=== PATIENT | female | born 1965 | race Caucasian/White ===

== ENCOUNTER 2023-11-17 07:53 | Day surgery (SDC) | payer BC ==
[2023-11-15 10:36] VITALS: BP 175/97
[~2023-11-17] VITALS: Ht 167.6 cm; Wt 85.9 kg
[~2023-11-17 07:53] MED LIST: CALCIUM500 MG PO; CEFAZOLIN SODIUM 2 GM/20 ML SYR IV SCH; CYCLOSPORINE100 MG PO; DEXAMETHASONE SOD PHOS 4 MG/ML VIAL ONE; FAMOTIDINE 20 MG/ 2 ML VIAL ONE; HEParin SOD (PORCINE) 5,000 UNIT/0.5 ML SYR SUB-Q SCH; IBLOOD GLUCOSE TEST STRIP 1 EA TEST VI PRN; KETOROLAC TROMETHAMINE 30 MG/ML VIAL ONE; LACTATED RINGER'S 1,000 ML IV ONE; LACTATED RINGER'S 1,000 ML IV SCH; LIDOCAINE HCL 1% 5 ML SDV INJ ONE; MAG-OXIDE200 MG PO; METOCLOPRAMIDE HCL 10 MG/2 ML SDV ONE; MIDAZOLAM HCL 2 MG/2 ML VIAL ONE; MILLIPRED5 MG PO; MYCOPHENOLIC A180 MG PO; PROBIOTIC1 EAC2 PO; TOPROL XL25 MG PO; VIT D3-VIT K21 EACH PO; ZYLOPRIM100 MG PO; fentaNYL citrate 100 MCG/2 ML VIAL ONE; ondansetron HCL 4 MG/2 ML VIAL ONE; propofoL 200 MG/20 ML VIAL ONE
[2023-11-17 08:12] VITALS: BP 136/77
[2023-11-17] MEDS ORDERED: NIFEDIPINE ER30 M1 PO (08:14)
[2023-11-17] MEDS ORDERED: LIDOCAINE HCL 1% 30 ML SDV ONE (08:25)
--- NOTE | 2023-11-17 09:27 | NUR ---
JOSE GUADALUPE 0925: PT IS BACK TO DS FROM IMAGING. SHE IS GIVEN A WARM BLANKET, HOOKED BACK UP TO LR. SHE AND ARE GIVEN AN UPDATE ON TIMELINE.
[2023-11-17] MEDS ORDERED: SUCCINYLCHOLINE IN 0.9% NACL 200 MG/10 ML SYRINGE ONE (11:01)
[2023-11-17] MEDS ORDERED: LIDOCAINE HCL 4% 5 ML AMP ONE (11:01)
[2023-11-17] MEDS ORDERED: propofoL 200 MG/20 ML VIAL ONE (11:02)
[2023-11-17] MEDS ORDERED: HYDROCORTISONE SOD SUCCINATE 100 MG/2 ML VIAL ONE (11:10)
[2023-11-17] MEDS ORDERED: ACETAMINOPHEN 1,000 MG/100 ML VIAL ONE (11:13)
[2023-11-17] MEDS ORDERED: droPERidol 5 MG/2 ML VIAL ONE (11:31)
[2023-11-17] MEDS ORDERED: DIGOXIN 500 MCG/2 ML AMP ONE (11:31)
[2023-11-17] MEDS ORDERED: PROCHLORPERAZINE EDISYLATE 10 MG/2 ML VIAL IV PRN ×2 (11:45→13:00)
[2023-11-17] MEDS ORDERED: IBLOOD GLUCOSE TEST STRIP 1 EA TEST VI PRN (11:45)
[2023-11-17] MEDS ORDERED: fentaNYL citrate 50 MCG/ML SDV IV PRN (11:45)
[2023-11-17] MEDS ORDERED: droPERidol 5 MG/2 ML VIAL IV PRN (11:45)
[2023-11-17] MEDS ORDERED: MORPHINE SULFATE 10 MG/ML VIAL IV PRN (11:45)
[2023-11-17] MEDS ORDERED: ondansetron HCL 4 MG/2 ML VIAL IV PRN ×2 (11:45→13:00)
[2023-11-17] MEDS ORDERED: NALOXONE HCL 0.4 MG SYR IV PRN ×2 (11:45→13:00)
[2023-11-17] MEDS ORDERED: METOCLOPRAMIDE HCL 10 MG/2 ML SDV IV PRN (11:45)
[2023-11-17] MEDS ORDERED: HYDROCODONE/ACETA 5/325 TAB PO PRN (13:00)
[2023-11-17] MEDS ORDERED: HYDROmorphone HCL 1 MG/ML SYR IV PRN (13:00)
--- NOTE | 2023-11-17 13:01 | NUR ---
11/17/23 1301 Shima Davidson PATIENT WAKES SUDDENLY. SHE FOLLOWS DIRECTIONS TO OPEN HER MOUTH AND HER ORAL AIRWAY IS REMOVED. OXYGEN SATURATION REMAINS 100% ON 10L VIA MASK. ICE APPLIED TO RIGHT AXILLA.
[2023-11-17 13:37] VITALS: BP 123/67
--- NOTE | 2023-11-17 13:39 | NUR ---
ICED WATER GIVEN. PATIENT REMAINS CONNECTED TO THE PULSE OXIMETER. HER IS AT HER BEDSIDE.
[2023-11-17 14:33] VITALS: BP 129/69
--- NOTE | 2023-11-17 15:52 | NUR ---
LE 1435: PT HAS TOLERATED PUDDING AND WATER WITHOUT ISSUES. SHE WOULD LIKE TO GET UP TO USE THE RESTROOM. SHE IS ASSISTED OOB WITH STANDBY ASSIST. SHE REPORTS FEELING A LITTLE WOBBLY, SHE IS ENCOURAGED NOT TO STARE AT THE FLOOR AND MAKE POSITION CHANGES SLOWLY. LE 1438: PT IS ABLE TO VOID 350MLS OF URINE. SHE AMBULATES BACK TO HER ROOM INDEPENDENTLY. SHE INDICATES THAT SHE WOULD LIKE TO GO HOME AT THIS TIME. LE 1441: PT IS EDUCATED ON HOW TO BEST DRESS HERSELF AND TO OPEN HER CURTAIN WHEN SHE IS READY. LE 1449: PT AND ARE GIVEN VERBAL AND WRITTEN DC INSTRUCTIONS. THEY BOTH VERBALIZE UNDERSTANDING. QUESTIONS ARE ASKED AND ANSWERED. LE 1450: PT IS TAKEN TO PERSONAL VEHICLE VIA .
--- NOTE | 2023-11-18 07:29 | OR ---
[facility] [address] [place], [place] [address] Signed DATE OF OPERATION: 11/17/2023 SURGEON: Alyx Stockton MD PREOPERATIVE DIAGNOSIS: Right upper outer quadrant breast cancer. POSTOPERATIVE DIAGNOSIS: Right upper outer quadrant breast cancer. PROCEDURES: 1. Injection of methylene blue. 2. Right axillary sentinel lymph node biopsies x2. 3. Right breast lumpectomy with the YUE reflector. ESTIMATED BLOOD LOSS: 20 mL. INDICATIONS: Leticia is a 58-year-old female, asked to see me for her right breast cancer in the upper outer quadrant. Her screening mammogram in August 16, 2023 showed a small area in the right upper outer quadrant of her breast about 15 cm from the nipple. She also had multiple other lesions. She went back for diagnostic mammogram and ultrasound on September 09, 2023. Again, she has a small 6 mm area in the right upper outer quadrant at about the 10 or 11 o'clock radius. Ultrasound confirmed this 8 x 8 x 6 mm lesion. The x-rays showed some of the lymph nodes were probably okay but the other x-rays were little more concerned. She went back for an MRI of both breasts because of multiple bilateral lesions. This was performed on September 22, 2023. Again, she has a small 10 mm lesion about the 11 o'clock radius 15 cm back from the nipple. Again, there was some concern whether or not the lymph nodes might be involved. However, I gave her reassurance that is less likely as the lesion is smaller. She underwent ultrasound-guided biopsy of that lesion on October 06, 2023. It came back ductal carcinoma and was ER/LA positive, but HER2/marilyn negative. She was asked to see me with respect to the above. She came with her and daughter. Part way through the office visit her had return to work. I had reviewed all this in great detail with Leticia. I performed a breast exam with her daughter and our medical dosimetrist, Lisset, in the room. She has large pendulous breasts. Both nipples were everted without drainage. No palpable lesions. No palpable lymph nodes. I gave her our brochure on breast and breast surgery. We looked it very carefully. I explained to her the concept of a sentinel lymph node biopsy. We also reviewed the concept of the YUE reflector so Electronically Signed By: ALYX STOCKTON MD 11/18/23 0729 PATIENT NAME: LETICIA CURTIS OPERATIVE REPORT DATE OF : 65 REPORT #: [id number] PHYSICIAN: ALYX STOCKTON MD PCP: BECKIE COLLINS REPORT IS CONFIDENTIAL AND NOT TO BE RELEASED WITHOUT AUTHORIZATION [facility] [address] [place], [place] [address] Signed we can localize the lesion to remove it with surrounding breast tissue. She understands this normally takes two separate incisions. It is a day surgery. There is risk including, but not limited to bleeding, infection, scarring, change in contour of the skin as well as possible need for additional surgeries as well as additional treatments that would include the medical oncologist and our radiation oncologist. She had expressed understanding and wished to proceed. PROCEDURE IN DETAIL: I met with Leticia and her this morning in the preop area. She had been in our Radiology Department this morning for injection of the technetium sulfur colloid around her nipple areolar complex. It showed two sentinel lymph nodes in the axilla. She had come last week for placement of the YUE reflector and of course that was quite evident on that mammogram. Leticia and I agreed on the right side. We marked that appropriately. After this, she was taken to the operating room and placed in a supine position under general endotracheal tube anesthesia. She was given preoperative antibiotics along with subcutaneous heparin. SCDs were utilized. She was then prepped and draped in the usual sterile fashion. We made a traditional incision along the inferior edge of the axillary hair and we carried that down through the tissues bluntly until we passed in the axilla and found both of her simple lymph nodes with the [place] counter. I had injected methylene blue underneath the nipple areolar complex before the procedure started but we did not see any methylene blue in those lymph nodes. We rechecked the axilla quite extensively and found no other evidence of any lymph nodes. We then injected some local anesthetic. The wound was irrigated and suctioned out until clear. We closed the wound in layers with 3-0 interrupted Monocryl sutures. The skin edges were reapproximated with running 5-0 fast absorbing plain gut suture. We then turned our attention to the breast itself. We used the probe for the YUE reflector. We reviewed the mammogram and it is not particularly far underneath the breast. We could see the puncture site in her skin and a little bit of bruising. We went ahead and made a curvilinear incision to follow the lines of Langerhans. We carefully worked our way down with the help of the detector and went down and around the area of the lesion with the help of the cautery and the curved Barnes scissors. We marked the lesion appropriately with silk sutures with long lateral, short superior and double stitch deep toward the chest wall. We went back and found a few bleeding points that we controlled easily with cautery. The wound was irrigated and suctioned out until clear. We injected local anesthetic. The wound was closed in layers again with interrupted 3-0 Monocryl suture including the dermis. The skin edges were then reapproximated with a running 5-0 fast absorbing plain gut suture. Dry gauze and tape were applied to both incisions. After this, Leticia was awakened from her anesthesia, extubated in the OR, and taken to recovery room in stable condition. Our radiologist did call us back while we were in the room and indeed the YUE reflector and her biopsy clip were in the specimen as along with the lesion itself. Electronically Signed By: ALYX STOCKTON MD 11/18/23 0729 PATIENT NAME: LETICIA CURTIS OPERATIVE REPORT DATE OF : 65 REPORT #: [id number] PHYSICIAN: ALYX STOCKTON MD PCP: BECKIE COLLINS REPORT IS CONFIDENTIAL AND NOT TO BE RELEASED WITHOUT AUTHORIZATION [facility] [address] [place], [place] [address] Signed Alyx Stockton MD ALB/MODL /[id number] cc: MONIK Qureshi MD Copies: BECKIE COLLINS ANDREW L MD ~ Electronically Signed By: ALYX STOCKTON MD 11/18/23 0729 PATIENT NAME: LETICIA CURTIS OPERATIVE REPORT DATE OF : 65 REPORT #: [id number] PHYSICIAN: ALYX STOCKTON MD PCP: BECKIE COLLINS REPORT IS CONFIDENTIAL AND NOT TO BE RELEASED WITHOUT AUTHORIZATION
--- NOTE | 2023-11-23 16:45 | PATH ---
[facility] [address] [place], [place] [address] Signed SPECIMEN(S): A RIGHT SENTINEL LYMPH NODE #1 SPECIMEN(S): B RIGHT SENTINEL LYMPH NODE #2 SPECIMEN(S): C RIGHT BREAST LUMPECTOMY SPECIMEN SOURCE: A. RIGHT SENTINEL LYMPH NODE #1 B. RIGHT SENTINEL LYMPH NODE #2 C. RIGHT BREAST LUMPECTOMY CLINICAL HISTORY: Right breast ductal carcinoma, ER/DE positive; HER2/negative, right lumpectomy, formalin times: Removed-12:15 PM, in formalin: 12:21 PM. FINAL PATHOLOGIC DIAGNOSIS: A. [place] lymph node #1: - 1 lymph node negative for metastatic carcinoma (0/1). B. [place] lymph node #2: - 1 lymph node negative for metastatic carcinoma (0/1). C. Right breast lumpectomy: - Invasive ductal carcinoma. - See synoptic report. INVASIVE CARCINOMA OF THE BREAST: Resection Applies To: A, B, C. SPECIMEN Procedure: Excision (less than total mastectomy) Specimen Laterality: Right TUMOR Tumor Site: Not specified Histologic Type: Invasive carcinoma of no special type (ductal) Glandular (Acinar) / Tubular Differentiation: Score 1 Nuclear Pleomorphism: Score 2 Mitotic Rate: Score 1 Overall Grade: Grade 1 (scores of 3, 4 or 5) Tumor Size: Greatest dimension of largest invasive focus (Millimeters) - 13 x 12 x 9 mm Tumor Focality: Single focus of invasive carcinoma Ductal Carcinoma In Situ (DCIS): Not identified Lobular Carcinoma In Situ (LCIS): Not identified Lymphatic and / or Vascular Invasion: Not identified Dermal Lymphatic and / or Vascular Invasion: No skin present PATIENT NAME: LEONOR CURTIS PATHOLOGY DATE OF : 65 REPORT #: [id number] PHYSICIAN: [facility] PCP: BECKIE COLLINS REPORT IS CONFIDENTIAL AND NOT TO BE RELEASED WITHOUT AUTHORIZATION [facility] [address] [place], [place] [address] Signed Microcalcifications: Present in invasive carcinoma Treatment Effect in the Breast: No known presurgical therapy MARGINS Margin Status for Invasive Carcinoma: Invasive carcinoma present at margin Margin(s) Involved by Invasive Carcinoma: Lateral - focal, limited, less than 1 mm. REGIONAL LYMPH NODES Regional Lymph Node Status: All regional lymph nodes negative for tumor Total Number of Lymph Nodes Examined (sentinel and non-sentinel): 2 Number of [place] Nodes Examined: 2 pTNM CLASSIFICATION (AJCC 8th Edition) Reporting of pT, pN, and (when applicable) pM categories is based on information available to the pathologist at the time the report is issued. As per the AJCC (Chapter 1, 8th Ed.) it is the managing physician's responsibility to establish the final pathologic stage based upon all pertinent information, including but potentially not limited to this pathology report. pT Category: pT1c pN Category: pN0 Breast Biomarker Testing Performed on Previous Biopsy: Estrogen Receptor (ER) Status: Positive (greater than 10% of cells demonstrate nuclear positivity) Percentage of Cells with Nuclear Positivity: 81-90% Progesterone Receptor (PgR) Status: Positive Percentage of Cells with Nuclear Positivity: 5% HER2 (by immunohistochemistry): Negative (Score 0) Testing Performed on Comment(s): As part of the [facility] software quality assurance engineer program the case has been reviewed by a second pathologist (ORIANA Alonso). JDAVID MICROSCOPIC EXAMINATION: Histologic sections of all submitted blocks (or IHC as applicable) are digitally scanned and examined. These findings, together with the gross examination, support the pathologic diagnosis. GROSS DESCRIPTION: A. The specimen, labeled and designated "Patria Curtis " and designated on the requisition "sentinel lymph node #1," is received in formalin and consists of 1.4 x 1.4 x 0.9 cm pink-jean possible lymph node with attached yellow-jean adipose tissue. The lymph node is sectioned and PATIENT NAME: LEONOR CURTIS PATHOLOGY DATE OF : 65 REPORT #: [id number] PHYSICIAN: LOUIS CHOUDHURY PCP: BECKIE COLLINS REPORT IS CONFIDENTIAL AND NOT TO BE RELEASED WITHOUT AUTHORIZATION [facility] [address] [place], [place] [address] Signed entirely submitted in cassette A1. Only adipose tissue remains within the container. B. The specimen, labeled and designated "Patria Curtis " and designated on the requisition "sentinel lymph node #2," is received in formalin and consists of 0.9 x 0.8 x 0.4 cm pink possible lymph node with attached yellow-jean adipose tissue. The lymph node is trisected and entirely submitted in cassette B1. Only adipose tissue remains within the container. C. The specimen, labeled and designated "KirstenPatria irene " and designated on the requisition "right breast lumpectomy," is received in formalin and consists of 27 gram oriented portion of yellow-jean fibroadipose tissue that is 6.2 x 4.7 x 2.9 cm. A short suture is present and identifies the superior margin; a long suture identifies the lateral margin. A medium length suture which is not identified is present on the posterior aspect. The specimen is inked as follows: superior - blue; inferior - green; medial - red; lateral - orange; anterior - yellow; and posterior - black. The specimen is serially sectioned from anterior to posterior into nine slices revealing a 1.3 x 1.2 x 0.9 cm white firm stellate mass present in slices 3-5 containing a metallic clip and blunger detector. The mass is 1.0 cm from the anterior soft tissue margin, 1.6 cm from the posterior soft tissue margin, 0.4 cm from the superior soft tissue margin, 1.3 cm from the inferior soft tissue margin, 1.2 cm from the medial soft tissue margin, and 0.4 cm from the lateral soft tissue margin. Approximately 95% of the remaining specimen is a yellow-jean greasy adipose tissue and 5% is a white-jean rubbery fibrous tissue. Health Practice Manager sections are submitted in 10 cassettes. Cassette Summary: (C1-C3) slice one, anterior soft tissue resection margin, perpendicular (C4) fibroadipose tissue anterior to mass, slice two (C5-C7) mass to superior, inferior, medial, lateral soft tissue resection margins, perpendicular, slices three, four, five, clip in C6 (C8) fibroadipose tissue posterior to mass (C9-C10) slice nine, posterior soft tissue resection margin, perpendicular Cold ischemia time: 6 minutes Approximate Formalin time: 21 hours. FB (under the direct supervision of a pathologist) The Gross Description was prepared using a voice recognition system. The report was reviewed for accuracy; however, sound-alike word errors, addition and/or deletions may occur. If there is any PATIENT NAME: KIRSTEN,LEONOR MORINE PATHOLOGY DATE OF : 65 REPORT #: [id number] PHYSICIAN: LOUIS CHOUDHURY PCP: BECKIE COLLINS REPORT IS CONFIDENTIAL AND NOT TO BE RELEASED WITHOUT AUTHORIZATION [address] [address] Signed question about this report, please contact Client Services. ADDITIONAL NOTES: Immunohistochemical and/or in situ hybridization studies if performed in this case included appropriate positive controls that reacted as expected. This test was developed and its performance characteristics determined by [facility]. It has not been cleared or approved by the U.S. Food and Drug Administration. The FDA has determined that such clearance or approval is not necessary. This test is used for clinical purposes. It should not be regarded as investigational or for research. [facility] is certified under the Clinical Laboratory Improvement Amendments of 1988 (CLIA) as qualified to perform high complexity clinical laboratory testing. PERFORMING LABORATORY: Technical component was performed by [facility], [address] [place] [id number] (CLIA# [id number]). Professional interpretation was performed by [facility] - [place] [facility] - [address] [place] [address] (CLIA#: [id number]). Diagnostician: Glenn Ruiz MD Pathologist Electronically Signed 11/23/2023 Copies: ~ PATIENT NAME: LEONOR CURTIS PATHOLOGY DATE OF : 65 REPORT #: [id number] PHYSICIAN: LOUIS CHOUDHURY PCP: BECKIE COLLINS REPORT IS CONFIDENTIAL AND NOT TO BE RELEASED WITHOUT AUTHORIZATION
== END 2023-11-17 14:50 | disposition home or self-care (01) ==
LOC: DS 07:53 → NUC 09:00 → DS 09:00
PROVIDERS: ATTEND Colon & Rectal Surgery
PROC: 0HBT0ZZ Excision of Right Breast, Open Approach (ICD-10-PCS; principal; 2023-11-17 10:00)
PROC: 07B50ZX Excision of Right Axillary Lymphatic, Open Approach, Diagnostic (ICD-10-PCS; 2023-11-17 10:00)
DX: C50.411 Malignant neoplasm of upper-outer quadrant of right female breast (principal); Z17.0 Estrogen receptor positive status [ER+]; I12.9 Hypertensive chronic kidney disease with stage 1 through stage 4 chronic kidney disease, or unspecified chronic kidney disease; N18.9 Chronic kidney disease, unspecified; R73.03 Prediabetes; E66.9 Obesity, unspecified; Z68.31 Body mass index [BMI] 31.0-31.9, adult; Z79.899 Other long term (current) drug therapy; Z88.8 Allergy status to other drugs, medicaments and biological substances
CPT/HCPCS: 00400; 76098; 78195; A9541; J0131; J0330; J0690; J1100; J1160; J1644; J1720; J1790; J1885; J2250; J2405; J2704; J2765; J3010; J7121; Q9968

== ENCOUNTER 2024-02-02 05:53 | Day surgery (SDC) | payer BC ==
[2024-01-31 16:26] VITALS: BP 149/89
[~2024-02-02] VITALS: Ht 167.6 cm; Wt 82.0 kg
[~2024-02-02 05:53] MED LIST changes: -CEFAZOLIN SODIUM 2 GM/20 ML SYR IV SCH; -DEXAMETHASONE SOD PHOS 4 MG/ML VIAL ONE; -FAMOTIDINE 20 MG/ 2 ML VIAL ONE; -HEParin SOD (PORCINE) 5,000 UNIT/0.5 ML SYR SUB-Q SCH; -IBLOOD GLUCOSE TEST STRIP 1 EA TEST VI PRN; -KETOROLAC TROMETHAMINE 30 MG/ML VIAL ONE; -LACTATED RINGER'S 1,000 ML IV ONE; -LIDOCAINE HCL 1% 5 ML SDV INJ ONE; -METOCLOPRAMIDE HCL 10 MG/2 ML SDV ONE; -MIDAZOLAM HCL 2 MG/2 ML VIAL ONE; +NIFEDIPINE ER30 M1 PO; -fentaNYL citrate 100 MCG/2 ML VIAL ONE; -ondansetron HCL 4 MG/2 ML VIAL ONE; -propofoL 200 MG/20 ML VIAL ONE
[2024-02-02 06:11] VITALS: BP 149/83
[2024-02-02] MEDS ORDERED: LIDOCAINE 1% W/ EPI 1:200,000 30 ML SDV ONE (06:36)
[2024-02-02] MEDS ORDERED: BUPIVACAINE HCL 0.25% 50 ML MDV ONE (06:36)
[2024-02-02] MEDS ORDERED: CEFAZOLIN SODIUM 2 GM/20 ML SYR IV SCH (07:00)
[2024-02-02] MEDS ORDERED: IBLOOD GLUCOSE TEST STRIP 1 EA TEST VI PRN ×2 (07:00→08:30)
[2024-02-02] MEDS ORDERED: LIDOCAINE HCL 1% 5 ML SDV INJ ONE (07:00)
--- NOTE | 2024-02-02 07:25 | NUR ---
VISITED DURING SPIRITUAL CARE ROUNDS. PT AND IN ROOM EXHIBIT STRONG RELATIONAL REOURCES. CARDIOLOGY MANAGER PROVIDED PAD EXTRACTOR TENDER EDUCATION, SUPPORTIVE PRESENCE, HOSPITALITY, PRAYER. PT AND EXPRESSED GRATITUDE.
[2024-02-02] MEDS ORDERED: fentaNYL citrate 100 MCG/2 ML VIAL ONE (07:29)
[2024-02-02] MEDS ORDERED: ACETAMINOPHEN 1,000 MG/100 ML VIAL ONE (07:30)
[2024-02-02] MEDS ORDERED: MAGNESIUM SULFATE 1 GM/2 ML VIAL ONE (07:30)
[2024-02-02] MEDS ORDERED: propofoL 200 MG/20 ML VIAL ONE (07:30)
[2024-02-02] MEDS ORDERED: ondansetron HCL 4 MG/2 ML VIAL ONE (07:30)
[2024-02-02] MEDS ORDERED: HEParin SOD (PORCINE) 5,000 UNIT/0.5 ML SYR SUB-Q ONE (07:30)
[2024-02-02] MEDS ORDERED: DEXAMETHASONE SOD PHOS 4 MG/ML VIAL ONE (07:30)
[2024-02-02] MEDS ORDERED: LIDOCAINE HCL 2% 5 ML SDV ONE (07:30)
[2024-02-02] MEDS ORDERED: dexmedeTOMIDine HCl 200 MCG/2 ML VIAL ONE (07:30)
[2024-02-02] MEDS ORDERED: methylPREDNISolone SOD SUCC 125 MG/2 ML VIAL ONE (07:33)
[2024-02-02] MEDS ORDERED: KETAMINE in NS 50 MG/5 ML SYR ONE (07:35)
[2024-02-02] MEDS ORDERED: ePHEDrine sulfate 50 MG/ML AMP ONE (08:24)
[2024-02-02] MEDS ORDERED: fentaNYL citrate 50 MCG/ML SDV IV PRN (08:30)
[2024-02-02] MEDS ORDERED: ondansetron HCL 4 MG/2 ML VIAL IV PRN ×2 (08:30→09:15)
[2024-02-02] MEDS ORDERED: NALOXONE HCL 0.4 MG SYR IV PRN ×2 (08:30→09:15)
[2024-02-02] MEDS ORDERED: droPERidol 5 MG/2 ML VIAL IV PRN (08:30)
--- NOTE | 2024-02-02 09:06 | NUR ---
02/02/24 0906 Sandi Galvan 0851-PATIENT ARRIVED TO PACU ON RA RR EVEN 92%. PATIENT REACTIVE TO VERBAL STIMULI OPENS EYES ORIENTED TO PACU DENIES PAIN OR NAUSEA. DRESSING TO RIGHT BREAST CDI ICE APPLIED. IVF INFUSING. SR. 0905-PATIENT RESTING WITH EYES CLOSED. O2 SAT DECREASED TO 90% AROUSES EASILY TO VERBAL STIMULI AND TAKES DEEP BREATHES. O2 SAT INCREASED TO 94%. PATIENT REPORTS "I SEE TWO OF YOU" ENCOURAGED TO REST CLOSES EYES.
[2024-02-02] MEDS ORDERED: PROCHLORPERAZINE EDISYLATE 10 MG/2 ML VIAL IV PRN (09:15)
[2024-02-02] MEDS ORDERED: HYDROCODONE/ACETA 5/325 TAB PO PRN (09:15)
[2024-02-02] MEDS ORDERED: LACTATED RINGER'S 1,000 ML IV SCH (09:15)
[2024-02-02] MEDS ORDERED: HYDROmorphone HCL 1 MG/ML SYR IV PRN (09:15)
[2024-02-02 09:32] VITALS: BP 145/71
[2024-02-02 10:30] VITALS: BP 153/84
--- NOTE | 2024-02-02 10:46 | OR ---
[facility] [address] [place], [place] [address] Signed DATE OF OPERATION: 02/02/2024 SURGEON: Alyx Stockton MD PREOPERATIVE DIAGNOSIS: Right breast cancer with positive lateral margin less than or equal to 1 mm. POSTOPERATIVE DIAGNOSIS: Right breast cancer with positive lateral margin less than or equal to 1 mm. PROCEDURE: Re-excision of right breast lumpectomy site. ESTIMATED BLOOD LOSS: 20 mL. INDICATIONS: Leticia is a 58-year-old female, who had came to us for her right breast lumpectomy and sentinel lymph node biopsy. She has done very well after the surgery. She had a positive lateral margin less than or equal to 1 mm. She had planned a trip to [place] for over a year. She wanted to maintain that trip. She comes back now after speaking with myself and our medical oncologist. She is aware that she could have radiation course that will be a boost to this site or we could re-excise that area. She wanted to re-excise the area. Her was then supported that as well. She is now back from [place] and we brought her in today to re-excise the lumpectomy site. In the meantime, she has healed very well and has had an excellent cosmetic result. She understands more tissue removed more likely she is going to have contraction of the wound and less than optimal cosmetic result. However, she told me this is cancer and she wanted it completely removed. Of course, the risk of the same including but not limited to bleeding, infection, scarring, change in contour of the skin as well as need for additional treatments. She has expressed understanding and wished to proceed with re-excision of the area. PROCEDURE IN DETAIL: I met with Leticia and her along with our nurse in our preop area. We all agreed on the previous right breast lumpectomy scar and we marked that appropriately. After this, Leticia was taken to the operating room and placed in the supine position under general LMA anesthesia. She was given preoperative antibiotics along with subcutaneous heparin. SCDs were utilized. She was prepped and draped in the usual sterile fashion. We used a #15 blade knife to sharply re-excise a curvilinear incision Electronically Signed By: ALYX STOCKTON MD 02/02/24 1046 PATIENT NAME: LETICIA CURTIS OPERATIVE REPORT DATE OF : 65 REPORT #: [id number] PHYSICIAN: ALYX STOCKTON MD PCP: BECKIE COLLINS REPORT IS CONFIDENTIAL AND NOT TO BE RELEASED WITHOUT AUTHORIZATION [facility] [address] [place], [place] [address] Signed around her previous scar. We then used our cautery to go down through the tissues. We started inferiorly and we went past her lumpectomy site, which was well healed. We then traveled cephalad and then back out laterally. The entire lumpectomy cavity was re-excised. We passed all the scar tissue into healthy breast tissue. The ellipse of skin costa the lateral margin and we used a double stitch to autumn the medial deep margin and a short stitch to autumn the superior or cephalad margin. The scar tissue was quite evident by palpation and visualization. We then irrigated out the wound cavity. She had one bleeding site that we had oversewn with 3-0 Monocryl closer to the chest wall. The sites were easily controlled with the cautery. We injected local anesthetic into her wound. We brought the dermis back together with interrupted 3-0 subcuticular Monocryl sutures. The skin edges were reapproximated with a running 5-0 fast absorbing plain gut suture. Dry gauze and tape was then applied. After this, Leticia was awakened from anesthesia, extubated in the OR, and taken to recovery room in stable condition. Alyx Stockton MD ALB/MODL /[id number] cc: MD Seven Ray MD Patient Chart MONIK Qureshi Copies: ALYX STOCKTON MD, ROBERT C MD HARRIES, LINDA PA ~ Electronically Signed By: ALYX STOCKTON MD 02/02/24 1046 PATIENT NAME: LETICIA CURTIS OPERATIVE REPORT DATE OF : 65 REPORT #: [id number] PHYSICIAN: ALYX STOCKTON MD PCP: BECKIE COLLINS REPORT IS CONFIDENTIAL AND NOT TO BE RELEASED WITHOUT AUTHORIZATION
--- NOTE | 2024-02-02 13:14 | NUR ---
LE 0930 PATIENT BACK TO 6 IN DAY SURGERY. REPORT RECIEVED. PATIENT ALERT AND ORIENTED. PATIENT STATES PAIN IS THERE BUT TOLERABLE. PATIENT DENIES BEING NAUSEATED. PATIENT SURGICAL SITE CLEAN, DRY AND INTACT. IVF INFUSING. SCD'S ON. WATER AND PUDDING GIVEN. LE 1000 PATIENT UP TO THE RESTROOM VOIDED 500 MLS OF CLEAR AND YELLOW URINE. LE 1030 PATIENT ALERT AND ORIENTED. BREATHING EQUAL AND UNLABORED. OXYGEN SATURATIONS ABOVE 90% ON ROOM AIR. PATIENT SURGICAL SITE CLEAN, DRY AND INTACT. IVF INFUSING. SCD'S ON. PATIENT HAS MET DISCHARGE CRITERIA. IV D/C'D WNL. PATIENT GIVEN DISCHARGE INSTRUCTIONS AND UNDERSTOOD. NO QUESTIONS. PATIENT WHEELED OUT OF FACILITY. NO FUTHER NEEDS.
--- NOTE | 2024-02-04 11:08 | PATH ---
[facility] [address], [place] [address] Signed SPECIMEN(S): A RIGHT BREAST SPECIMEN SOURCE: A. RIGHT BREAST CLINICAL HISTORY: Right breast cancer FINAL PATHOLOGIC DIAGNOSIS: Breast, right, excision: - Benign breast tissue with prior biopsy/procedural site changes - Microcalcifications identified in association with nonneoplastic tissue BRP MICROSCOPIC EXAMINATION: Histologic sections of all submitted blocks are examined by light microscopy. These findings, together with the gross examination, support the pathologic diagnosis. GROSS DESCRIPTION: The specimen, labeled and designated "Nancy, mass reexcision R breast," is received in formalin and consists of a lumpectomy (9.1 cm from superior to inferior by 8.7 cm from medial to lateral by 4.0 cm from anterior to posterior, 113 g) with a sliver of jean-pink skin (4.0 x 0.8 cm) on the lateral aspect. The specimen is oriented by the surgeon with a double stitch designating medial/deep, short stitch designating superior, and the skin designating lateral. The specimen is inked and serially sectioned from superior to inferior into 18 slices to reveal a possible jean-white, stellate lesion (3.0 x 1.8 x 1.5 cm) on slices 7- 12 that grossly abuts the anterior, medial, and superior margins and measures 1.7 cm to the lateral margin, 2.1 cm to the skin, 2.5 cm to the inferior margin, and 2.7 cm to the posterior margin. There is also a hemorrhagic cavity (0.6 x 0.4 x 0.4 cm) on slices 2-3 that measures 0.5 cm to the posterior margin, 0.8 cm to the superior margin, 2.2 cm to the medial margin, 2.5 cm to the first measured possible lesion, 4.0 cm to the lateral margin, 4.1 cm to the skin, 4.3 cm to the anterior margin, and 7.3 cm to the inferior margin. The remaining cut surfaces are jean-yellow, lobulated, focally fibrotic, and have multiple areas of firm foci scattered throughout. No distinct biopsy site is grossly identified. PATIENT NAME: LEONOR CURTIS PATHOLOGY DATE OF : 65 REPORT #: [id number] PHYSICIAN: LOUIS CHOUDHURY PCP: BECKIE COLLINS REPORT IS CONFIDENTIAL AND NOT TO BE RELEASED WITHOUT AUTHORIZATION [facility] [address], [place] [address] Signed Hide Cleaner sections are submitted in A1-A22, to include the entire hemorrhagic cavity and possible lesion with sampling of the firm foci. Ink code: Blue: Superior, Green: Inferior, Red: Medial, [place]: Lateral, Yellow: Anterior, Black: Posterior Cassette Summary: (A1-A2) hemorrhagic cavity, slice 2, senior outside sales representative (A3) hemorrhagic cavity, slice 3, senior outside sales representative (A4) firm focus, slice 3, senior outside sales representative (A5) tissue directly superior to possible lesion, slice 6, senior outside sales representative (A6) possible lesion, slice 7, senior outside sales representative (A7) firm focus, slice 7, senior outside sales representative (A8-A9) possible lesion, slice 8, senior outside sales representative (A10) firm focus, slice 9, senior outside sales representative (A11-A14) possible lesion, slice 10, senior outside sales representative (A15-A16) possible lesion, slice 11, senior outside sales representative (A17-A18) possible lesion, slice 12, senior outside sales representative (A19) tissue directly inferior to possible lesion, slice 13, senior outside sales representative (A20) firm focus, slice 13, senior outside sales representative (A21) firm focus, slice 14, senior outside sales representative (A22) inferior margin and skin closest to possible lesion, senior outside sales representative Time of collection: 8:22 AM, 02/01/2024. Time into formalin: 8:22 AM, 02/01/2024. Processor load time: 12:00 PM, 02/03/2024. Total fixation time in formalin: 51 hours 38 minutes The ASCO/CAP guidelines related to HER2 and hormone receptor testing in breast specimens have been met and the specimen has been placed in formalin within one hour and fixed in 10% neutral buffered formalin for 6 to 72 hours. KG (under the direct supervision of a pathologist) The Gross Description was prepared using a voice recognition system. The report was reviewed for accuracy; however, sound-alike word errors, addition and/or deletions may occur. If there is any question about this report, please contact Client Services. ADDITIONAL NOTES: Immunohistochemical and/or in situ hybridization studies if performed in this case included appropriate positive controls that reacted as expected. This test was developed and its performance PATIENT NAME: LEONOR CURTIS PATHOLOGY DATE OF : 65 REPORT #: [id number] PHYSICIAN: LOUIS CHOUDHURY PCP: BECKIE COLLINS REPORT IS CONFIDENTIAL AND NOT TO BE RELEASED WITHOUT AUTHORIZATION [address] [address] Signed characteristics determined by [facility]. It has not been cleared or approved by the U.S. Food and Drug Administration. The FDA has determined that such clearance or approval is not necessary. This test is used for clinical purposes. It should not be regarded as investigational or for research. [facility] is certified under the Clinical Laboratory Improvement Amendments of 1988 (CLIA) as qualified to perform high complexity clinical laboratory testing. PERFORMING LABORATORY: Technical component was performed by [facility], [address] [place] [id number] (CLIA# [id number]). Professional interpretation was performed by [facility], [address] [place] [id number] (CLIA# [id number]). Diagnostician: Iron Josue MD Pathologist Electronically Signed 02/04/2024 Copies: ~ PATIENT NAME: LEONOR CURTIS PATHOLOGY DATE OF : 65 REPORT #: [id number] PHYSICIAN: NGUYENMohive PATHOLOGY PCP: BECKIE COLLINS REPORT IS CONFIDENTIAL AND NOT TO BE RELEASED WITHOUT AUTHORIZATION
== END 2024-02-02 10:30 | disposition home or self-care (01) ==
LOC: DS 05:53
PROVIDERS: ATTEND Colon & Rectal Surgery
PROC: 0HBT0ZZ Excision of Right Breast, Open Approach (ICD-10-PCS; principal; 2024-02-02 07:30)
DX: C50.911 Malignant neoplasm of unspecified site of right female breast (principal); Z88.6 Allergy status to analgesic agent; Z88.8 Allergy status to other drugs, medicaments and biological substances
CPT/HCPCS: 00400; J0131; J0690; J1100; J1644; J2001; J2405; J2704; J2919; J3010; J3475; J3490; J7121